=== PATIENT | female | born 1950 | race Caucasian/White ===

== ENCOUNTER 2023-06-11 13:21 | Emergency (ER) | payer MEDICARE, OTHER ==
[~2023-06-11] VITALS: Ht 160 cm; Wt 61.0 kg
[~2023-06-11 13:21] MED LIST: ASPI-130 PO; ASPI-611 PO; ATOR-2 PO; CALC-506 PO; CYAN-104 PO; GLUC500T12 PO; LACT1CAP65 PO; LISI10TA27 PO; METO-395 PO; OMEP40CA21 PO
[2023-06-11 14:30] VITALS: BP 149/78; PULSE 71; RESP 18; TEMP 98.7; O2SAT 98
[2023-06-11 15:07] LABS: BILIRUBIN,URINE NEGATIVE (Neg); CLARITY,URINE CLEAR (Clear); COLOR,URINE YELLOW (Yellow); GLUCOSE, URINE NEGATIVE (Neg); KETONES,URINE NEGATIVE (Neg); LEUKOCYTE ESTERASE ,URINE NEGATIVE (Neg); NITRITES, URINE NEGATIVE (Neg); OCCULT BLOOD,URINE TRACE-INTACT (Neg); PROTEIN,URINE NEGATIVE (Neg); UROBILINOGEN,URINE 0.2 E.U/dL (0.2-1.0)
[2023-06-11 15:09] LABS: BASOPHILS % (AUTO) 0.5 % (0-1); EOSINOPHILS # (AUTO) 0.1 X10'3 (0-0.9); EOSINOPHILS % (AUTO) 0.8 % (0-6); HEMATOCRIT 39.1 % (35.0-45.0); LYMPHOCYTES # (AUTO) 2.6 X10'3 (1.1-4.8); LYMPHOCYTES % (AUTO) 28.5 % (21-51); MEAN CORPUSCULAR HEMOGLOBIN 32.4 PG (27.0-31.0); MEAN CORPUSCULAR HGB CONC 33.2 g/dL (33.0-36.5); MEAN CORPUSCULAR VOLUME 97.6 FL (78-98); MONOCYTES # (AUTO) 0.6 X10'3 (0-0.9); NEUTROPHILS # (AUTO) 5.7 X10'3 (1.8-7.7); NEUTROPHILS % (AUTO) 63.2 % (42-75); PLATELET COUNT 255 X10'3 (140-440)
[2023-06-11 15:13] LABS: UA COLLECTION TYPE CLN CATCH MIDSTREAM
[2023-06-11 15:14] LABS: BACTERIA,URINE NONE SEEN /HPF (Neg); MUCUS STRANDS NONE SEEN /LPF (Neg); RBC,URINE 0-2 /HPF (0-2); SQUAMOUS EPITHELIAL CELL,UR FEW /LPF (FEW); WBC,URINE NONE SEEN /HPF (0-4)
[2023-06-11 15:30] LABS: ALANINE AMINOTRANSFERASE 56 U/L (12-78); ALBUMIN 3.9 G/DL (3.4-5.0); ALKALINE PHOSPHATASE 97 IU/L (46-116); ANION GAP 10 (8-16); ASPARTATE AMINO TRANSFERASE 33 U/L (10-37); BILIRUBIN,TOTAL 0.2 MG/DL (0.1-1.0); BLOOD UREA NITROGEN 22 MG/DL (7-18); BUN/CREATININE RATIO 20.4 (10.0-20.0); CALCIUM 9.5 MG/DL (8.5-10.1); CHLORIDE 103 MMOL/L (99-107); CREATININE 1.08 MG/DL (0.40-0.90); GLUCOSE 92 MG/DL (70-104); POTASSIUM 3.6 MMOL/L (3.5-5.1); SODIUM 141 MMOL/L (135-145); TOTAL CARBON DIOXIDE 28.5 MMOL/L (24-32); TOTAL PROTEIN 7.9 G/DL (6.4-8.2); eCRCL 38 ML/MIN; eGFR 50 ML/MIN
[2023-06-11 15:37] LABS: PRO BRAIN NATRIURETIC PEPTIDE 152 PG/ML (0-125)
== END 2023-06-11 21:12 | disposition left against medical advice (07) ==
LOC: ER 13:22
DX: R42 Dizziness and giddiness (principal); Z53.21 Procedure and treatment not carried out due to patient leaving prior to being seen by health care provider
CPT/HCPCS: 36415; 71045; 80053; 81001; 83880; 84484; 85025; 93005; 99281

== ENCOUNTER 2025-05-23 09:36 | Outpatient (CLI) | payer MEDICARE, MEDICAID ==
--- NOTE | 2025-05-23 10:34 | RADIOLOGY REPORT ---
EXAM: CT CT CHEST LOW DOSE HISTORY: NICOTINE DEPENDENCE 74-year-old female with lung cancer screening. COMPARISON: Chest x-ray dated 06/11/2023. TECHNIQUE: Noncontrast helical CT images of the chest were performed utilizing low dose lung cancer screening protocol. Sagittal and coronal reformatted images were obtained. This CT exam was performed using one or more of the following dose reduction techniques: Automated exposure control, adjustment of the mA and/or kV according to patient size, or use of iterative reconstruction technique. Radiation Dose: CT Dose: CTDI volume is 1.87 mGy. Dose-length product is 65.52 mGy*cm FINDINGS: There is a 3.8 mm lingular noncalcified pulmonary nodule (image 63, series 4). There is [id number] centrilobular and paraseptal emphysema. There is mild central peribronchial thickening. There is mild bilateral lower lobe mucous plugging. No consolidative infiltrates, pneumothorax, pleural effusions, or pulmonary edema. No suspicious mediastinal or axillary adenopathy. The heart is not enlarged. There are atherosclerotic calcifications of the coronary arteries. No thoracic aortic aneurysm. There are bilateral prepectoral breast implants, with probable contained silicone rupture along the inferolateral margin of the right breast implant. There is mild left renal atrophy, not fully imaged here. There is moderate thoracic degenerative disc disease. There is mildly exaggerated thoracic kyphosis. IMPRESSION: 1. 3.8 mm lingular noncalcified pulmonary nodule. 2. Emphysema and reactive airways disease. 3. Coronary artery disease. 4. Bilateral breast implants with probable contained rupture along the inferolateral margin of the right implant. This may be better characterized with diagnostic mammography if not already performed. Lung-RADS 2. Benign. Continue annual screening with LDCT in 12 months. Lung-RADS v2022.
== END 2025-05-23 23:59 | disposition home or self-care (01) ==
LOC: RAD 09:36
PROVIDERS: ATTEND Nurse Practitioner Family
DX: Z12.2 Encounter for screening for malignant neoplasm of respiratory organs (principal); F17.200 Nicotine dependence, unspecified, uncomplicated; F17.210 Nicotine dependence, cigarettes, uncomplicated; I25.10 Atherosclerotic heart disease of native coronary artery without angina pectoris; R91.1 Solitary pulmonary nodule; J43.2 Centrilobular emphysema; J98.09 Other diseases of bronchus, not elsewhere classified; N26.1 Atrophy of kidney (terminal); M47.814 Spondylosis without myelopathy or radiculopathy, thoracic region; M40.294 Other kyphosis, thoracic region
CPT/HCPCS: 71271